=== PATIENT | female | born 1995 | race Caucasian/White ===

== ENCOUNTER 2016-09-25 23:15 | Emergency (ER) | payer OTHER ==
[~2016-09-25] VITALS: Ht 170.2 cm; Wt 77.1 kg
[2016-09-25 23:40] VITALS: BP 148/79
[2016-09-26] MEDS ORDERED: LIDOCAINE 1% INJ 50 ML MDV IJ ONE
== END 2016-09-26 01:35 | disposition home or self-care (01) ==
LOC: ER 23:21
DX: S01.112A Laceration without foreign body of left eyelid and periocular area, initial encounter (principal); S52.122A Displaced fracture of head of left radius, initial encounter for closed fracture; W01.110A Fall on same level from slipping, tripping and stumbling with subsequent striking against sharp glass, initial encounter; Y93.89 Activity, other specified; Y92.89 Other specified places as the place of occurrence of the external cause; Y99.8 Other external cause status
CPT/HCPCS: 12011; 29105; 73080; 99284; A4606; A6402; J3490 ×2; Z7610